=== PATIENT | male | born 2000 | race Caucasian/White ===

== ENCOUNTER 2023-04-18 09:56 | Emergency (ER) | payer OTHER ==
[~2023-04-18] VITALS: Ht 175.3 cm; Wt 59.0 kg
[2023-04-18 10:00] VITALS: O2SAT 100
== END 2023-04-18 11:15 | disposition home or self-care (01) ==
LOC: ER 10:13
DX: Z00.00 Encounter for general adult medical examination without abnormal findings (principal)
CPT/HCPCS: 99282